=== PATIENT | female | born 1955 | race Caucasian/White ===

== ENCOUNTER → 2016-09-08 | Outpatient (CLI) | payer OTHER ==
[2016-09-08 15:55] LABS: MEAN CORPUSCULAR VOLUME 94.1 fl (80.0-96.0); WHITE BLOOD COUNT 4.2 K/mm3 (4.0-10.0)
[2016-09-08 16:20] LABS: ALBUMIN 3.7 GM/DL (3.2-5.2); ALBUMIN/GLOBULIN RATIO 1.32 (1.00-1.93); ALKALINE PHOSPHATASE 55 U/L (45-117); ALT/SGPT 25 U/L (12-78); ANION GAP 6 MEQ/L (8-16); AST/SGOT 18 U/L (15-37); BILIRUBIN,TOTAL 0.3 MG/DL (0.2-1.0); BLOOD UREA NITROGEN 21 MG/DL (7-18); CALCIUM LEVEL 8.7 MG/DL (8.8-10.2); CARBON DIOXIDE LEVEL 30 MEQ/L (21-32); CHLORIDE LEVEL 105 MEQ/L (98-107); CREATININE FOR GFR 0.96 MG/DL (0.55-1.02); FREE T4 1.04 NG/DL (0.76-1.46); GLOMERULAR FILTRATION RATE > 60.0 (>45); GLUCOSE, FASTING 83 MG/DL (80-110); POTASSIUM SERUM 5.1 MEQ/L (3.5-5.1); SODIUM LEVEL 141 MEQ/L (136-145); TOTAL PROTEIN 6.5 GM/DL (6.4-8.2)
== END ==
LOC: M LAB 15:12
PROVIDERS: ATTEND Physician Assistant Medical
DX: R19.7 Diarrhea, unspecified (principal)

== ENCOUNTER → 2016-09-12 | Outpatient (REF) | payer OTHER | LOC: M LAB REF 16:51 | PROVIDERS: ATTEND Physician Assistant Medical | DX: R19.7 Diarrhea, unspecified (principal) ==

== ENCOUNTER → 2016-09-13 | Outpatient (CLI) | payer OTHER ==
--- NOTE | 2016-09-14 03:40 | REP ---
Clinical: Sitz marker study. Technique: Single supine view of the abdomen and pelvis. Findings: Few residual sitz markers are identified in the cecum (four markers) and transverse colon (single marker). Bowel gas pattern is nonspecific. No organomegaly. No abnormal calcifications. Skeletal structures intact. Impression: Few residual sitz markers. Nonspecific bowel gas pattern. Signed by Richard Washington MD 09/14/2016 03:31 A
== END ==
LOC: M RAD 08:00
PROVIDERS: ATTEND Physician Assistant Medical
DX: R19.7 Diarrhea, unspecified (principal)

== ENCOUNTER → 2016-11-03 | Outpatient (CLI) | payer OTHER ==
[~2016-11-03] VITALS: Ht 162.6 cm; Wt 56.7 kg
[~2016-11-03] MED LIST: ALFA650T2 PO; ALLE180T33 PO; ALLE60TA69 PO; ARTI99.0 OP; ASTA4CAP PO; CLOB-24 EX; CLOB-25 EX; COQ-50CA2 PO; DIGETAB4 PO; FLEET SUPPOSITORY; FLON1SPR; GARL1000 PO; GARL10005 PO; LEXA1TAB2 PO; LUTE20TA PO; MIRA3350 PO; MUCI600T31 PO; NATU400T PO; NS 1,000 ML IV ONE; OREGANO OIL PO; PREDOPD OS; PROBCAP4 PO; PROPOFOL 200 MG/20 ML VIAL As Ordered ONE; SING10TA32 PO; SUDA30TA PO; TURMCAP PO; VITA10006 PO; [UNRECOGNIZED DRUG - OTHER]; [UNRECOGNIZED DRUG - OTHER] PO; [UNRECOGNIZED DRUG - OTHER] PO; [UNRECOGNIZED DRUG - OTHER] PO; [UNRECOGNIZED DRUG - OTHER] PO; [UNRECOGNIZED DRUG - OTHER] PO; [UNRECOGNIZED DRUG - OTHER] PO; [UNRECOGNIZED DRUG - OTHER] PO
--- NOTE | 2016-11-03 10:10 | ROOR ---
Patient Name: Jessica Larios Procedure Date: 11/03/2016 9:46 AM Date of : 1955 Age: 60 Room: [facility] Gender: Female Note Status: Finalized Procedure: Colonoscopy Indications: Irritable bowel syndrome with constipation, Mixed irritable bowel syndrome. Constipation with overflow diarrhea suspected, abnormal Sitzmarker testing. Providers: Shalom GATES MD Referring MD: Kyle MIRANDA DO Requesting Provider: Medicines: Monitored Anesthesia Care Complications: No immediate complications. Procedure: Pre-Anesthesia Assessment: - The heart rate, respiratory rate, oxygen saturations, blood pressure, adequacy of pulmonary ventilation, and response to care were monitored throughout the procedure. The Colonoscope was introduced through the anus and advanced to 5 cm into the ileum. The colonoscopy was performed without difficulty. The patient tolerated the procedure well. The quality of the bowel preparation was good. Findings: The perianal and digital rectal examinations were normal. Internal hemorrhoids were found during retroflexion. The hemorrhoids were medium-sized. A few small-mouthed diverticula were found in the sigmoid colon. The colon (entire examined portion) was redundant. The entire examined colon appeared normal on direct and retroflexion views. The terminal ileum appeared normal. Impression: - Internal hemorrhoids. - Mild diverticulosis in the sigmoid colon. - Redundant colon. - The entire examined colon is normal on direct and retroflexion views. - The examined portion of the ileum was normal. - No specimens collected. Recommendation: - Continue present medications. - depending on results with Miralax, consideration may be given to a trial on Linzess or Amitiza. Shalom Gates MD Shalom GATES MD 11/03/2016 10:09:38 AM This report has been signed electronically. Number of Addenda: 0 Note Initiated On: 11/03/2016 9:46 AM Estimated Blood Loss: Estimated blood loss: none.
[2016-11-03 10:25] VITALS: BP 100/64
== END | disposition home or self-care (01) ==
LOC: M OPP 09:03
PROVIDERS: ATTEND Internal Medicine Gastroenterology
DX: R19.7 Diarrhea, unspecified (principal); R19.4 Change in bowel habit; K58.1 Irritable bowel syndrome with constipation; K58.2 Mixed irritable bowel syndrome; K64.8 Other hemorrhoids; K57.30 Diverticulosis of large intestine without perforation or abscess without bleeding; Q43.8 Other specified congenital malformations of intestine; R00.8 Other abnormalities of heart beat; R07.89 Other chest pain; M85.80 Other specified disorders of bone density and structure, unspecified site; Q61.2 Polycystic kidney, adult type; R31.29 Other microscopic hematuria; F42.9 Obsessive-compulsive disorder, unspecified; Z88.1 Allergy status to other antibiotic agents; Z91.011 Allergy to milk products; Z79.899 Other long term (current) drug therapy; Z80.1 Family history of malignant neoplasm of trachea, bronchus and lung; Z80.3 Family history of malignant neoplasm of breast; Z94.7 Corneal transplant status

== ENCOUNTER → 2023-01-17 | Outpatient (REF) | payer MEDICARE, OTHER ==
[~2023-01-17] MED LIST changes: -ARTI99.0 OP; +ARTIDRO4 OP; +CO Q50CA7 PO; -COQ-50CA2 PO; +MONT-5 PO; -NS 1,000 ML IV ONE; -PROPOFOL 200 MG/20 ML VIAL As Ordered ONE; -SING10TA32 PO
== END ==
LOC: M SFHCWAGY 18:10
PROVIDERS: ATTEND Nurse Practitioner Family
DX: Z12.4 Encounter for screening for malignant neoplasm of cervix (principal); N95.8 Other specified menopausal and perimenopausal disorders